=== PATIENT | female | born 1950 | race Hispanic/Latino ===

== ENCOUNTER 2016-12-12 16:24 | Emergency (ER) | payer OTHER ==
[2016-12-12 17:11] VITALS: TEMP 98.7
--- NOTE | 2016-12-12 17:29 | C.PDOC ---
History Of Present Illness Patient presents to ED c/o right sided chest pain that is sharp, radiates to left arm and upper back, and is nonpleuritic She admits to occasional SOB in the last several weeks, but denies fever, cough, abdominal pain, back pain, h/o recent surgeries, h/o PE/DVT, h/o cancer. PMHx of HTN, DM, hyperlipidemia. Time Seen by Provider: 12/12/16 17:03 Chief Complaint (Nursing): Chest Pain History Per: Patient History/Exam Limitations: no limitations Onset/Duration Of Symptoms: Hrs Current Symptoms Are (Timing): Still Present Severity: Moderate Quality: "Pain" Exacerbating Factors: Movement. denies: Deep Breathing Past Medical History Reviewed: Historical Data, Nursing Documentation, Vital Signs Vital Signs: Last Vital Signs Temp 98.7 F 12/12/16 17:08 Pulse 92 H 12/12/16 18:23 Resp 20 12/12/16 18:23 BP 152/93 H 12/12/16 18:23 Pulse Ox 100 12/12/16 18:52 - Medical History PMH: Diabetes, HTN, Hypercholesterolemia, Hyperthyroidism Surgical History: Appendectomy, Cholecystectomy (2014) Other Surgeries: right breast lumpectomy - benign as per patient - [facility] Procedures PHYSICAL THERAPY NEC (06/14/14) Family History: States: No Known Family Hx - Social History Hx Tobacco Use: No Hx Alcohol Use: No Hx Substance Use: No - Immunization History Hx Tetanus Toxoid Vaccination: No Hx Influenza Vaccination: No Hx Pneumococcal Vaccination: No Review Of Systems Except As Marked, All Systems Reviewed And Found Negative. Constitutional: Negative for: Fever Cardiovascular: Positive for: Chest Pain. Negative for: Palpitations Respiratory: Positive for: Shortness of Breath. Negative for: Cough Gastrointestinal: Negative for: Nausea, Vomiting, Abdominal Pain Skin: Negative for: Rash Physical Exam - Physical Exam Appears: Well, Non-toxic, In Acute Distress (in mild pain, anxious appearing ) Skin: Normal Color, Warm, Dry, No Rash, Other (right breast lumpectomy scar) Oral Mucosa: Moist Chest: Tenderness (right chest/upper breast TTP without erythema/mass/rash) Cardiovascular: Rhythm Regular, Murmur (3/6 systolic murmur) Respiratory: Normal Breath Sounds, No Rales, No Rhonchi, No Wheezing Gastrointestinal/Abdominal: Normal Exam, Bowel Sounds, Soft, No Tenderness Extremity: Normal ROM, No Pedal Edema, No Calf Tenderness Pulses: Left Dorsalis Pedis: Normal, Right Dorsalis Pedis: Normal Neurological/Psych: Oriented x3 ED Course And Treatment - Laboratory Results Result Diagrams: 12/12/16 17:58 12/12/16 17:58 ECG: Interpreted By Me, Viewed By Me (NSR 79 bpm, normal axis, Q waves III, no acute ST/ T wave changes) ECG Interpretation: No Acute Changes O2 Sat by Pulse Oximetry: 100 (RA) Pulse Ox Interpretation: Normal - Radiology CXR: Interpreted by Me, Viewed By Me CXR Interpretation: Yes: No Acute Disease. No: Infiltrates Progress Note: Blood work, CXR, EKG ordered and reviewed. Patient given IV morphine for pain. CTA chest ordered due to elevated d-dimer, to r/o PE. Patient anxious about getting CT scan, she was reassurred and Ativan ordered PRN (to be given prior to CT). Medical Decision Making Medical Decision Making: differential diagnoses considered: MN/ACS, PE, pneumonia, costochondritis, shingles, pancreatitis, GERD, PUD Disposition - Disposition Disposition Time: 19:00 Condition: STABLE Forms: [employer] (Senegalese) - Clinical Impression Clinical Impression: Chest pain, Elevated d-dimer Physician Patient Turnover Patient Signed Over To: Issac Robert Handoff Comments: pending reassessment, CTA chest
[2016-12-12 18:08] LABS: BASO % 0.4 % (0.0-2.0); EOS # 0.1 K/uL (0.0-0.7); EOS % 1.2 % (0.0-4.0); HEMATOCRIT 42.9 % (34.0-47.0); LYMPH % 47.6 % (20.0-40.0); MEAN CELL VOLUME 87.6 fL (81.0-99.0); MEAN CORPUSCULAR HGB CONC 35.4 g/dL (33.0-37.0); MEAN PLATELET VOLUME 7.4 fL (7.2-11.7); MONO # 0.4 K/uL (0.0-0.8); RED CELL DISTRIBUTION WIDTH 12.5 % (11.5-14.5); WHITE BLOOD COUNT 8.4 K/uL (4.8-10.8)
[2016-12-12 18:16] LABS: CHLORIDE 97 mmol/L (98-107)
[2016-12-12 18:17] LABS: POTASSIUM 4.3 mmol/L (3.6-5.2); SODIUM 132 mmol/L (132-148)
[2016-12-12 18:19] LABS: ALB/GLOB RATIO 1.2 (1.0-2.1); ALKALINE PHOSPHATASE 73 U/L (38-126); AST/SGOT 40 U/L (14-36); BILIRUBIN,TOTAL 1.4 mg/dL (0.2-1.3); BLOOD UREA NITROGEN 13 mg/dL (7-17); CARBON DIOXIDE 21 mmol/L (22-30); GFR AFRICAN-AMERICAN > 60; TOTAL PROTEIN 7.5 g/dL (6.3-8.3)
[2016-12-12 18:20] LABS: ALT/SGPT 50 U/L (9-52); CALCIUM 9.1 mg/dl (8.6-10.4); GLUCOSE,RANDOM 369 mg/dL (65-105)
[2016-12-12] MEDS ORDERED: (Novolin R) Insulin Human Regular 100 units/ml vial IV ONE (18:52)
[2016-12-12] MEDS ORDERED: Iodixanol 320 mg/ml 150 ml Bottle IV ONE (18:52)
[2016-12-12] MEDS ORDERED: Sodium Chloride 0.9% 500 ML IV ONE (18:53)
[2016-12-12] MEDS ORDERED: (Novolin R) Insulin Human Regular 100 units/ml vial ONE (19:02)
--- NOTE | 2016-12-12 20:26 | CT ---
EXAM: CT Angiography Chest With Intravenous Contrast EXAM DATE/TIME: Exam ordered 12/12/2016 6:37 PM CLINICAL HISTORY: 66 years old, female; Pain; Chest pain; Right-sided chest pain; Additional info: Chest pain, SOB, elevated ddimer, R/O pe TECHNIQUE: Axial computed tomographic angiography images of the chest with intravenous contrast using pulmonary embolism protocol. All CT scans at this facility use one or more dose reduction techniques, viz.: automated exposure control; ma/kV adjustment per patient size (including targeted exams where dose is matched to indication; i.e. head); or iterative reconstruction technique. MIP reconstructed images were created and reviewed. Coronal and sagittal reformatted images were created and reviewed. CONTRAST: 100 mL of diep530 administered intravenously. COMPARISON: No relevant prior studies available. FINDINGS: Pulmonary arteries: Unremarkable. No pulmonary embolism. 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 Lungs: Unremarkable. No mass. No consolidation. Pleural space: Unremarkable. No significant effusion. No pneumothorax. Heart: Unremarkable. No cardiomegaly. No significant pericardial effusion. No evidence of RV dysfunction. Bones/joints: No acute fracture. No dislocation. Soft tissues: Unremarkable. Lymph nodes: Unremarkable. No enlarged lymph nodes. Abdomen: Surgical clips are seen in the gallbladder fossa. There is a small hiatal hernia IMPRESSION: No acute findings.
[2016-12-12 20:29] VITALS: BP 134/67; PULSE 80; RESP 18; O2SAT 96
--- NOTE | 2016-12-13 08:12 | RAD ---
PROCEDURE: CHEST RADIOGRAPH, 1 VIEW HISTORY: Chest pain COMPARISON: 10/03/2015 FINDINGS: LUNGS: Mild venous congestion. Right hilar prominence. PLEURA: No pneumothorax or pleural fluid seen. CARDIOVASCULAR: Normal. OSSEOUS STRUCTURES: No significant abnormalities. VISUALIZED UPPER ABDOMEN: Normal. OTHER FINDINGS: None. IMPRESSION: Mild venous congestion. Right hilar prominence.
--- NOTE | 2016-12-14 10:34 | CARD ---
APPROVED REPORT EKG Measurement Heart [id number] <Conclusion> Normal sinus rhythm Cannot rule out Inferior infarct, age undetermined Anterior infarct, age undetermined Abnormal ECG
== END 2016-12-12 20:52 | disposition home or self-care (01) ==
LOC: C.ER 16:24
DX: R07.9 Chest pain, unspecified (principal); R79.1 Abnormal coagulation profile; I10 Essential (primary) hypertension; E78.00 Pure hypercholesterolemia, unspecified; E11.9 Type 2 diabetes mellitus without complications; E05.90 Thyrotoxicosis, unspecified without thyrotoxic crisis or storm
CPT/HCPCS: 71010; 71275; 80053; 82550; 82553; 84484; 85025; 85378; 85610; 85730; 96374; 99284; J2270; J7040; Q9967

== ENCOUNTER 2017-03-02 21:16 | Observation (INO) | payer MEDICAID, OTHER ==
[2017-03-02] MEDS ORDERED: Sodium Chloride 0.9% 1,000 ML IV ONE (22:06)
[2017-03-02 22:46] LABS: BASO % 0.6 % (0.0-2.0); EOS % 0.5 % (0.0-4.0); HEMOGLOBIN 14.9 g/dL (11.0-16.0); LYMPH # 2.1 K/uL (1.0-4.3); LYMPH % 29.7 % (20.0-40.0); MEAN CORPUSCULAR HEMOGLOBIN 30.9 pg (27.0-31.0); MEAN CORPUSCULAR HGB CONC 35.1 g/dL (33.0-37.0); MONO # 0.4 K/uL (0.0-0.8); MONO % 5.1 % (0.0-10.0); NEUT # 4.5 K/uL (1.8-7.0); NEUT % 64.1 % (50.0-75.0); NRBC % 0.1 % (0.0-2.0); RBC 4.82 Mil/uL (3.80-5.20); RED CELL DISTRIBUTION WIDTH 12.9 % (11.5-14.5); WHITE BLOOD COUNT 7.1 K/uL (4.8-10.8)
--- NOTE | 2017-03-02 22:52 | C.PDOC ---
History Of Present Illness 66 year old female presents to the ED for evaluation of epigastric abdominal pain which began after she ate soup earlier today. Patient states her pain radiates into her chest and is associated with nausea and shortness of breath. She has not taken any medicine for her symptoms and denies vomiting, diarrhea, extremity numbness/weakness. Time Seen by Provider: 03/02/17 21:56 Chief Complaint (Nursing): Shortness Of Breath History Per: Patient History/Exam Limitations: no limitations Onset/Duration Of Symptoms: Hrs Current Symptoms Are (Timing): Still Present Location Of Pain/Discomfort: Epigastric Radiation Of Pain To:: Chest Quality Of Discomfort: "Pain" Associated Symptoms: Nausea, Other (shortness of breath ). denies: Vomiting, Diarrhea Exacerbating Factors: Food Additional History Per: Patient Abnormal Vaginal Bleeding: No Past Medical History Reviewed: Historical Data, Nursing Documentation, Vital Signs Vital Signs: Last Vital Signs Temp 98.2 F 03/02/17 23:59 Pulse 78 03/02/17 23:59 Resp 16 03/02/17 23:59 BP 160/79 H 03/02/17 23:59 Pulse Ox 98 03/02/17 23:59 - Medical History PMH: Diabetes, HTN, Hypercholesterolemia, Hyperthyroidism Surgical History: Appendectomy, Cholecystectomy (2015) - [facility] Procedures PHYSICAL THERAPY NEC (06/14/14) Family History: States: Unknown Family Hx - Social History Hx Tobacco Use: No Hx Alcohol Use: No Hx Substance Use: No - Immunization History Hx Tetanus Toxoid Vaccination: No Hx Influenza Vaccination: No Hx Pneumococcal Vaccination: No Review Of Systems Cardiovascular: Positive for: Chest Pain Respiratory: Positive for: Shortness of Breath Gastrointestinal: Positive for: Nausea, Abdominal Pain (epigastric ). Negative for: Vomiting, Diarrhea Neurological: Negative for: Weakness, Numbness Physical Exam - Physical Exam Appears: Non-toxic, No Acute Distress Skin: Normal Color, Warm, Dry Head: Atraumatic, Normacephalic Eye(s): bilateral: Normal Inspection Oral Mucosa: Moist Neck: Supple Chest: Symmetrical, No Deformity, No Tenderness Cardiovascular: Rhythm Regular, No Murmur Respiratory: Normal Breath Sounds, No Rales, No Rhonchi, No Wheezing Gastrointestinal/Abdominal: Tenderness (epigastrium ) Extremity: Normal ROM, Capillary Refill (less than 2 seconds ) Neurological/Psych: Oriented x3, Normal Speech, Normal Cognition Gait: Steady ED Course And Treatment - Laboratory Results Result Diagrams: 03/02/17 22:40 03/02/17 22:40 ECG: Interpreted By Me, Viewed By Me ECG Rhythm: Sinus Rhythm Interpretation Of ECG: Sinus Rhythm with rate 66pm. Poor R-wave progression. Normal axis. Normal intervals. No ST/T wave abnormalities. Rate From EC O2 Sat by Pulse Oximetry: 99 (on RA) Pulse Ox Interpretation: Normal Medical Decision Making Medical Decision Making: Progress: Bloodwork, CXR, EKG, UA ordered and reviewed. Morphine IVP, Protonix IVP and IV Fluids administered. cxr - prel. read by me, mac Case discussed with Dr. Kortney Myers. Will admit patient to Tele-Obs for diagnosis of atypical chest pain, epigastric abdominal pain and hyperglycemia. Disposition Discussed With Dr.: Brian Myers Doctor Will See Patient In The: Hospital Counseled Patient/Family Regarding: Studies Performed, Diagnosis - Disposition Disposition: HOSPITALIZED Disposition Time: 22:39 Condition: FAIR - Clinical Impression Clinical Impression: Hyperglycemia, Chest pain, Abdominal pain - Scribe Statement The provider has reviewed the documentation as recorded by the Scribe (Dorcas Carrizales) Provider Attestation: All medical record entries made by the Scribe were at my direction and personally dictated by me. I have reviewed the chart and agree that the record accurately reflects my personal performance of the history, physical exam, medical decision making, and the department course for this patient. I have also personally directed, reviewed, and agree with the discharge instructions and disposition.
[2017-03-02 23:03] LABS: ALB/GLOB RATIO 1.5 (1.0-2.1); ALT/SGPT 50 U/L (9-52); AST/SGOT 24 U/L (14-36); BLOOD UREA NITROGEN 9 mg/dL (7-17); CALCIUM 8.7 mg/dl (8.6-10.4); GFR AFRICAN-AMERICAN > 60; GFR NON-AFRICAN AMERICAN > 60; LIPASE 147 U/L (23-300)
[2017-03-02] MEDS ORDERED: (Novolin R) Insulin Human Regular 100 units/ml vial IV ONE (23:06)
[2017-03-02 23:09] LABS: SQUAMOUS EPITHIAL 2 /hpf (0-5); URINE BACTERIA FEW (<OCC); URINE BILIRUBIN NEGATIVE (NEGATIVE); URINE BLOOD 2+ (NEGATIVE); URINE CLARITY Clear (Clear); URINE COLOR Yellow (YELLOW); URINE GLUCOSE (UA) 3+ mg/dL (Normal); URINE LEUKOCYTE ESTERASE 3+ Leu/uL (Negative); URINE NITRATE NEGATIVE (NEGATIVE); URINE PROTEIN NEGATIVE (NEGATIVE); URINE UROBILINOGEN NORMAL mg/dL (0.2-1.0)
[2017-03-02 23:10] LABS: B-TYPE NATRIURETIC PEPTIDE 53.5 pg/mL (0-900)
[2017-03-02] MEDS ORDERED: (Novolin R) Insulin Human Regular 100 units/ml vial ONE (23:12)
[2017-03-02] MEDS ORDERED: Aspirin 325 mg EC Tablets PO STA (23:36)
[2017-03-03] MEDS ORDERED: Aspirin 325 mg EC Tablets PO ONE (00:47)
[2017-03-03 02:13] VITALS: RESP 20
[2017-03-03 04:55] VITALS: TEMP 98.3
[2017-03-03] MEDS ORDERED: (Novolin R) Insulin Human Regular 100 units/ml vial SC SCH (07:30)
[2017-03-03 08:00] VITALS: BP 158/79; PULSE 79; O2SAT 95
[2017-03-03 08:05] LABS: CK-MB 1.16 ng/mL (0.0-3.38)
[2017-03-03 08:08] LABS: ALB/GLOB RATIO 1.4 (1.0-2.1); ALT/SGPT 40 U/L (9-52); AST/SGOT 28 U/L (14-36); BLOOD UREA NITROGEN 8 mg/dL (7-17); CALCIUM 8.4 mg/dl (8.6-10.4); GFR AFRICAN-AMERICAN > 60; GFR NON-AFRICAN AMERICAN > 60
[2017-03-03 08:36] LABS: EOS % 0.4 % (0.0-4.0); HEMOGLOBIN 14.9 g/dL (11.0-16.0); LYMPH # 3.7 K/uL (1.0-4.3); LYMPH % 34.5 % (20.0-40.0); MEAN CELL VOLUME 88.7 fL (81.0-99.0); MEAN CORPUSCULAR HEMOGLOBIN 31.6 pg (27.0-31.0); MEAN CORPUSCULAR HGB CONC 35.6 g/dL (33.0-37.0); MEAN PLATELET VOLUME 7.5 fL (7.2-11.7); MONO # 0.5 K/uL (0.0-0.8); NEUT # 6.4 K/uL (1.8-7.0); NEUT % 60.1 % (50.0-75.0); NRBC % 0.1 % (0.0-2.0); RBC 4.72 Mil/uL (3.80-5.20); WHITE BLOOD COUNT 10.7 K/uL (4.8-10.8)
--- NOTE | 2017-03-03 09:42 | CP.PCM.PN ---
Subjective - Date & Time of Evaluation Date of Evaluation: 03/03/17 Time of Evaluation: 09:36 - Subjective Subjective: Patient decided to leave AMA. Risks and benefits were explained with the patient however the patient still decided to sign out AMA. The patient was alert and orientated x3. Nursing staff placed a call to PMD Dr. Myers alerting him of her AMA status. Objective - Vital Signs/Intake and Output Vital Signs (last 24 hours): Temp Pulse Resp BP Pulse Ox 98.3 F 79 20 158/79 H 95 03/03/17 07:20 03/03/17 07:20 03/03/17 07:20 03/03/17 07:20 03/03/17 07:20 - Medications Medications: Current Medications Acetaminophen (Tylenol 325mg Tab) 650 mg PO Q6 PRN PRN Reason: Pain, moderate (4-7) Enoxaparin Sodium (Lovenox) 30 mg SC Q12 [facility] Last Admin: 03/03/17 09:20 Dose: 30 mg Famotidine (Pepcid) 1 mg PO BID [facility] Last Admin: 03/03/17 09:20 Dose: 1 mg Home Med (Glimepiride) 4 mg PO DAILY [facility] Home Med (Januvia.) 1 tab PO DAILY [facility] Home Med (Pravastatin) 20 mg PO DAILY [facility] Insulin Human Regular (Novolin R) 0 unit SC ACHS [facility] PRN Reason: Protocol Last Admin: 03/03/17 08:25 Dose: 4 unit Lisinopril (Zestril) 20 mg PO DAILY [facility] Last Admin: 03/03/17 09:20 Dose: 20 mg Metformin HCl (Glucophage) 500 mg PO DAILY [facility] Last Admin: 03/03/17 09:20 Dose: 500 mg Metoprolol Tartrate (Lopressor) 50 mg PO BID [facility] Last Admin: 03/03/17 09:20 Dose: 50 mg - Labs Labs: 03/03/17 07:15 03/03/17 07:15
[2017-03-03] MEDS ORDERED: JANUVIA PO SCH (10:00)
[2017-03-03] MEDS ORDERED: PRAVASTATIN 20 MG PO SCH (10:00)
[2017-03-03] MEDS ORDERED: GLIMEPIRIDE 4 MG PO SCH (10:00)
[2017-03-03] MEDS ORDERED: Enoxaparin 30 mg Syringe SC SCH (10:00)
--- NOTE | 2017-03-03 10:13 | RAD ---
HISTORY: chest pain COMPARISON: Chest x-ray performed 12/12/16, CTA chest performed 12/12/16 TECHNIQUE: Chest, one view. FINDINGS: Examination limited by habitus. LUNGS: No focal consolidation. Please note that chest x-ray has limited sensitivity for the detection of pulmonary masses. PLEURA: No significant pleural effusion identified. No definite pneumothorax . CARDIOVASCULAR: The cardiomediastinal silhouette appears within normal limits of size. OSSEOUS STRUCTURES: No acute osseous abnormality identified. VISUALIZED UPPER ABDOMEN: Elevation of the right hemidiaphragm. OTHER FINDINGS: None. IMPRESSION: No focal consolidation, significant pleural effusion, or definite pneumothorax identified.
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
--- NOTE | 2017-03-03 11:14 | CP.PCM.DIS ---
Provider - Provider Date of Admission: 03/02/17 23:37 Attending physician: Brian Myers MD Time Spent in preparation of Discharge (in minutes): 3 Hospital Course - Lab Results Lab Results: Most Recent Lab Values WBC 10.7 K/uL (4.8-10.8) D 03/03/17 07:15 RBC 4.72 Mil/uL (3.80-5.20) 03/03/17 07:15 Hgb 14.9 g/dL (11.0-16.0) 03/03/17 07:15 Hct 41.8 % (34.0-47.0) 03/03/17 07:15 MCV 88.7 fL (81.0-99.0) 03/03/17 07:15 MCH 31.6 pg (27.0-31.0) H 03/03/17 07:15 MCHC 35.6 g/dL (33.0-37.0) 03/03/17 07:15 RDW 13.0 % (11.5-14.5) 03/03/17 07:15 Plt Count 264 K/uL (130-400) 03/03/17 07:15 MPV 7.5 fL (7.2-11.7) 03/03/17 07:15 Neut % (Auto) 60.1 % (50.0-75.0) 03/03/17 07:15 Lymph % (Auto) 34.5 % (20.0-40.0) 03/03/17 07:15 [place] % (Auto) 5.0 % (0.0-10.0) 03/03/17 07:15 Eos % (Auto) 0.4 % (0.0-4.0) 03/03/17 07:15 Baso % (Auto) 0.0 % (0.0-2.0) 03/03/17 07:15 Neut # 6.4 K/uL (1.8-7.0) 03/03/17 07:15 Lymph # 3.7 K/uL (1.0-4.3) 03/03/17 07:15 [place] # 0.5 K/uL (0.0-0.8) 03/03/17 07:15 Eos # 0.0 K/uL (0.0-0.7) 03/03/17 07:15 Baso # 0.0 K/uL (0.0-0.2) 03/03/17 07:15 Sodium 132 mmol/L (132-148) 03/03/17 07:15 Potassium 3.8 mmol/L (3.6-5.2) 03/03/17 07:15 Chloride 99 mmol/L (98-107) 03/03/17 07:15 Carbon Dioxide 22 mmol/L (22-30) 03/03/17 07:15 Anion Gap 15 (10-20) 03/03/17 07:15 BUN 8 mg/dL (7-17) 03/03/17 07:15 Creatinine 0.5 mg/dL (0.7-1.2) L 03/03/17 07:15 Est GFR ( Amer) > 60 03/03/17 07:15 Est GFR (Non-Af Amer) > 60 03/03/17 07:15 POC Glucose (mg/dL) 265 mg/dL (65-110) H 03/03/17 06:24 Random Glucose 282 mg/dL (65-105) H 03/03/17 07:15 Calcium 8.4 mg/dl (8.6-10.4) L 03/03/17 07:15 Total Bilirubin 1.8 mg/dL (0.2-1.3) H 03/03/17 07:15 AST 28 U/L (14-36) 03/03/17 07:15 ALT 40 U/L (9-52) 03/03/17 07:15 Alkaline Phosphatase 76 U/L (38-126) 03/03/17 07:15 Total Creatine Kinase 36 U/L (30-135) 03/03/17 07:15 CK-MB (Mass) 1.16 ng/mL (0.0-3.38) 03/03/17 07:15 Troponin I < 0.0120 ng/mL (0.00-0.120) 03/03/17 07:15 NT-Pro-B Natriuret Pep 53.5 pg/mL (0-900) 03/02/17 22:40 Total Protein 6.8 g/dL (6.3-8.3) 03/03/17 07:15 Albumin 4.0 g/dL (3.5-5.0) 03/03/17 07:15 Globulin 2.8 gm/dL (2.2-3.9) 03/03/17 07:15 Albumin/Globulin Ratio 1.4 (1.0-2.1) 03/03/17 07:15 Lipase 147 U/L (23-300) 03/02/17 22:40 Urine Color Yellow (YELLOW) 03/02/17 22:48 Urine Clarity Clear (Clear) 03/02/17 22:48 Urine pH 5.0 (5.0-8.0) 03/02/17 22:48 Ur Specific [place] 1.037 (1.003-1.030) H 03/02/17 22:48 Urine Protein Negative mg/dL (NEGATIVE) 03/02/17 22:48 Urine Glucose (UA) 3+ mg/dL (Normal) H 03/02/17 22:48 Urine Ketones 1+ mg/dL (NEGATIVE) H 03/02/17 22:48 Urine Blood 2+ (NEGATIVE) H 03/02/17 22:48 Urine Nitrate Negative (NEGATIVE) 03/02/17 22:48 Urine Bilirubin Negative (NEGATIVE) 03/02/17 22:48 Urine Urobilinogen Normal mg/dL (0.2-1.0) 03/02/17 22:48 Ur Leukocyte Esterase 3+ [place]/uL (Negative) H 03/02/17 22:48 Urine WBC (Auto) 95 /hpf (0-5) H 03/02/17 22:48 Urine RBC (Auto) 20 /hpf (0-3) H 03/02/17 22:48 Ur Squamous Epith Cells 2 /hpf (0-5) 03/02/17 22:48 Ur Transition Epith Cell 1 /hpf (0-3) 03/02/17 22:48 Urine Bacteria Few (<OCC) H 03/02/17 22:48 - Hospital Course Hospital Course: ADMITTED TO [facility] WITH EPIGASTRIC PAIN , DM , HIGH SUGAR BEFORE ANY FURTHER TESTING , SIGNED OUT AMA WILL INFORM PT'S PMD , DR. IBRAHIM Discharge Plan - Follow Up Plan Condition: FAIR Disposition: AGAINST MEDICAL ADVICE
--- NOTE | 2017-03-04 10:34 | CARD ---
APPROVED REPORT EKG Measurement Heart [id number] [place] [id number] <Conclusion> Normal sinus rhythm Possible Anterior infarct, age undetermined Abnormal ECG
--- NOTE | 2017-03-04 11:53 | CARD ---
APPROVED REPORT EKG Measurement Heart [id number] MD [id number] <Conclusion> Normal sinus rhythm Inferior infarct, age undetermined Possible Anterior infarct, age undetermined Abnormal ECG
== END 2017-03-03 09:32 | disposition left against medical advice (07) ==
LOC: C.ER 21:16 → C.9E 23:37 → C.6T 03-03 00:49
PROVIDERS: ADMIT Internal Medicine Cardiovascular Disease; ATTEND Internal Medicine Cardiovascular Disease
DX: E11.65 Type 2 diabetes mellitus with hyperglycemia (principal); Z87.891 Personal history of nicotine dependence; I10 Essential (primary) hypertension; R10.13 Epigastric pain
CPT/HCPCS: 36415; 71045; 80053; 81001; 82948; 83690; 83880; 84484; 85025; 96360; 96374; C9113; G0378; J1650; J2270; J7040

== ENCOUNTER 2018-02-20 10:44 | Emergency (ER) | payer MEDICARE ==
--- NOTE | 2018-02-20 11:31 | C.PDOC ---
History Of Present Illness 67 year old female with PMHx of HTN and diabetes presents to the ED complaining of left ankle pain status post twisting foot and falling on left knee when walking on uneven pavement 2 days ago. Reports she has been taking Motrin without improvement. Denies LOC or head injury. Denies weakness or numbness. Time Seen by Provider: 02/20/18 11:09 Chief Complaint (Nursing): Lower Extremity Problem/Injury History Per: Patient History/Exam Limitations: no limitations Onset/Duration Of Symptoms: Days (2) Current Symptoms Are (Timing): Still Present - Ankle/Foot Description Of Injury: Twisted Past Medical History Reviewed: Historical Data, Nursing Documentation, Vital Signs Vital Signs: Last Vital Signs Temp 97.8 F 02/20/18 11:02 Pulse 67 02/20/18 11:02 Resp 18 02/20/18 11:02 BP 147/82 02/20/18 11:02 Pulse Ox 97 02/20/18 11:02 - Medical History PMH: Diabetes, HTN, Hypercholesterolemia, Hyperthyroidism Denies: Chronic Kidney Disease Surgical History: Appendectomy, Cholecystectomy (2014) - [facility] Procedures PHYSICAL THERAPY [facility] (06/14/14) Family History: States: No Known Family Hx - Social History Hx Tobacco Use: No Hx Alcohol Use: No Hx Substance Use: No - Immunization History Hx Tetanus Toxoid Vaccination: No Hx Influenza Vaccination: No Hx Pneumococcal Vaccination: No Review Of Systems Musculoskeletal: Positive for: Foot Pain (left ankle and foot pain ) Neurological: Negative for: Weakness, Numbness Physical Exam - Physical Exam Appears: Non-toxic, No Acute Distress Skin: Warm, Dry, No Rash Head: Normacephalic Eye(s): bilateral: Normal Inspection Neck: Supple Chest: Symmetrical Cardiovascular: Rhythm Regular Respiratory: No Rales, No Rhonchi, No Wheezing, Other (CTA B/L ) Extremity: Tenderness (swelling to left lateral malleolus and proximal area of foot and heel ), No Calf Tenderness, Capillary Refill (less than 2 sec to left foot ), No Deformity, Swelling (mild swelling to left lateral malleolus and proximal area of foot ) Pulses: Left Dorsalis Pedis: Normal, Right Dorsalis Pedis: Normal Neurological/Psych: Oriented x3, Normal Speech, Normal Motor, Normal Sensation Gait: Steady ED Course And Treatment O2 Sat by Pulse Oximetry: 97 (RA) Pulse Ox Interpretation: Normal - Other Rad Left ankle X-Ray: Viewed By Me, Read By Radiologist Interpretation: IMPRESSION: No acute displaced fracture, dislocation, or significant joint effusion identified. left foot X-Ray: Viewed By Me, Read By Radiologist Interpretation: IMPRESSION: No acute displaced fracture, dislocation, or significant joint effusion identified. - CT Scan/US CT LLE Other Rad Studies (CT/US): Read By Radiologist, Radiology Report Reviewed CT/US Interpretation: Impression: No acute fracture. Medical Decision Making Medical Decision Making: Plan - XR left ankle - XR left foot 1300 suspcious for fx proximal 4th metatarsal; discussed with podiatry resident., will get lower ext ct. 1445 ct neg for fx, podiatry coming to see pt. 1509 pt seen by podiatry, declines splint and crutches. cartwright dressing applied by Dr French, and post op shoe given. pt to f/u with her orthopedist. Disposition Counseled Patient/Family Regarding: Studies Performed, Diagnosis, Need For Followup, Rx Given - Disposition Disposition: HOME/ ROUTINE Disposition Time: 15:11 Condition: GOOD Additional Instructions: RICE_ rest, ice (cold compresses), compression (dressing) and elevation. Ibuprofen for pain Take with food. Limit weight bearing. Follow up with your orthopedist. Prescriptions: Ibuprofen [Motrin] 600 mg PO TID #30 tab Instructions: Ankle Sprain (DC) Forms: [facility] (Azeri), General Discharge Instructions - Clinical Impression Clinical Impression: Strain of left ankle and foot - PA / ATHLETIC DIRECTOR / Resident Statement MD/DO has reviewed & agrees with the documentation as recorded. - Scribe Statement The provider has reviewed the documentation as recorded by the Kamila Ventura All medical record entries made by the Kamila were at my direction and personally dictated by me. I have reviewed the chart and agree that the record accurately reflects my personal performance of the history, physical exam, medical decision making, and the department course for this patient. I have also personally directed, reviewed, and agree with the discharge instructions and disposition.
--- NOTE | 2018-02-20 13:42 | RAD ---
PROCEDURE: Left foot radiographs Left ankle radiographs HISTORY: heel pain s/p twist and fall COMPARISON: None available. FINDINGS: BONES: No acute displaced fracture. JOINTS: No dislocation. SOFT TISSUES: Unremarkable. No evidence of radiopaque foreign body. OTHER FINDINGS: None. IMPRESSION: No acute displaced fracture, dislocation, or significant joint effusion identified.
--- NOTE | 2018-02-20 13:59 | CT ---
Indication: eval for foot fx pls Noncontrast CT of the left foot Comparison: Left foot/ankle radiographs performed same day. Technique: Noncontrast axial images of the left foot. Sagittal and coronal reformatted images were generated and reviewed. This CT exam was performed using 1 or more of the falling dose reduction techniques: Automated exposure control, adjustment of the MAA and/or kV according to patient size, and/or use of iterative reconstruction technique. Total exam DLP: 451.01 Findings: No acute fracture identified. No dislocation. Soft tissues appear unremarkable. No radiopaque foreign body. Impression: No acute fracture.
[2018-02-20 14:30] VITALS: BP 160/83; PULSE 71; RESP 20; TEMP 98.1
[2018-02-20 14:48] VITALS: O2SAT 97
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
== END 2018-02-20 15:30 | disposition home or self-care (01) ==
LOC: C.ER 10:44
DX: S96.912A Strain of unspecified muscle and tendon at ankle and foot level, left foot, initial encounter (principal); W19.XXXA Unspecified fall, initial encounter; Y92.480 Sidewalk as the place of occurrence of the external cause; E11.9 Type 2 diabetes mellitus without complications; E78.00 Pure hypercholesterolemia, unspecified; I10 Essential (primary) hypertension; Z87.891 Personal history of nicotine dependence; E05.90 Thyrotoxicosis, unspecified without thyrotoxic crisis or storm